=== PATIENT | female | born 1970 | race Caucasian/White ===

== ENCOUNTER 2018-11-08 10:47 | Emergency (ER) | payer BC, OTHER ==
--- NOTE | 2018-11-08 11:06 | EDM.PDOC ---
ED HPI GENERAL MEDICAL PROBLEM - General Chief Complaint: Upper Extremity Injury/Pain Stated Complaint: hand injury Time Seen by Provider: 11/08/18 10:55 Source of Information: Reports: Patient History Limitations: Reports: No Limitations - History of Present Illness INITIAL COMMENTS - FREE TEXT/NARRATIVE: Patient is a 48-year-old who works at [employer] seen with chief complaint right hand trauma patient while working smashed her right hand between a pole and a Bentyl which is a cart the caries part. Onset: Today, Sudden Duration: Minutes:, Constant (Ice makes it better) Location: Reports: Upper Extremity, Right Quality: Reports: Throbbing Severity: Mild Improves with: Reports: Cold Therapy Worsens with: Reports: Movement Context: Reports: Trauma Associated Symptoms: Reports: No Other Symptoms Right Hand Pain Score (Numeric/FACES): 9 - Related Data Allergies Allergy/AdvReac Type Severity Reaction Status Date / Time No Known Allergies Allergy Verified 11/08/18 10:50 Home Meds: Home Meds Celecoxib [CeleBREX] 400 mg PO DAILY 11/08/18 [History] predniSONE [Prednisone] 5 mg PO DAILY 11/08/18 [History] Review of Systems - Review of Systems Review Of Systems: See Below Constitutional: Reports: No Symptoms Eyes: Reports: No Symptoms Ears: Reports: No Symptoms Nose: Reports: No Symptoms Mouth/Throat: Reports: No Symptoms Respiratory: Reports: No Symptoms Cardiovascular: Reports: No Symptoms GI/Abdominal: Reports: No Symptoms Genitourinary: Reports: No Symptoms Musculoskeletal: Reports: Hand Pain Skin: Reports: Bruising Neurological: Reports: No Symptoms Psychiatric: Reports: No Symptoms ED EXAM, GENERAL - Physical Exam Exam: See Below Exam Limited By: No Limitations General Appearance: Alert, WD/WN, No Apparent Distress Eye Exam: Bilateral Eye: PERRL Ears: Normal External Exam, Normal Canal, Hearing Grossly Normal, Normal TMs Ear Exam: Bilateral Ear: Auricle Normal, Canal Normal, TM normal Nose: Normal Inspection, Normal Mucosa, No Blood Throat/Mouth: Normal Inspection, Normal Lips, Normal Teeth, Normal Gums, Normal Oropharynx, Normal Voice, No Airway Compromise Head: Atraumatic, Normocephalic Neck: Normal Inspection, Supple, Non-Tender, Full Range of Motion Respiratory/Chest: No Respiratory Distress, Lungs Clear, Normal Breath Sounds, No Accessory Muscle Use, Chest Non-Tender Cardiovascular: Normal Peripheral Pulses, Regular Rate, Rhythm, No Edema, No Gallop, No JVD, No Murmur, No Rub GI/Abdominal: Normal Bowel Sounds, Soft, Non-Tender, No Organomegaly, No Distention, No Abnormal Bruit, No Mass (Female) Exam: Deferred Rectal (Female) Exam: Deferred Back Exam: Normal Inspection, Full Range of Motion, NT Extremities: Normal Inspection, Normal Range of Motion, Non-Tender, Normal Capillary Refill, No Pedal Edema Neurological: Alert, Oriented, CN II-XII Intact, Normal Cognition, Normal Gait, Normal Reflexes, No Motor/Sensory Deficits Psychiatric: Normal Affect, Normal Mood Skin Exam: Warm, Dry, Intact, Normal Color, No Rash Lymphatic: No Adenopathy Course - Vital Signs Last Recorded V/S: Last Vital Signs Temp 98.2 F 11/08/18 10:48 Pulse 69 11/08/18 10:48 Resp 16 11/08/18 10:48 BP 153/69 H 11/08/18 10:48 Pulse Ox 100 11/08/18 10:48 - Orders/Labs/Meds Orders: Active Orders 24 hr Category Date Time Status Vaccines to be Administered [RC] PER UNIT ROUTINE Care 11/08/18 11:31 Ordered Hand Comp Min 3V Rt [CR] Stat Exams 11/08/18 10:57 Ordered Meds: Medications Discontinued Medications Generic Name Dose Route Start Last Admin Trade Name Freq PRN Reason Stop Dose Admin Diphtheria/Tetanus/Acell Pertussis 0.5 ml 11/08/18 11:30 11/08/18 11:36 Adacel IM 11/08/18 11:31 0.5 ml .ONCE ONE Administration Neomycin/Polymyxin/Bacitracin 1 each 11/08/18 11:10 11/08/18 11:32 Triple Antibiotic Oint TOP 11/08/18 11:11 1 each ONETIME ONE Administration Departure - Departure Time of Disposition: 11:49 Disposition: Home, Self-Care 01 Condition: Fair Clinical Impression: Abrasion hand - Discharge Information *PRESCRIPTION DRUG MONITORING PROGRAM REVIEWED*: No *COPY OF PRESCRIPTION DRUG MONITORING REPORT IN PATIENT MIKE: No Referrals: Latrice Fontenot NP [Primary Care Provider] - Forms: ED Department Discharge Care Plan Goals: Patient instructed to ice her hand 20 minutes on and 20 minutes off patient will be kept from work until Monday the November 13 she has an appointment with her primary provider on Monday the patient is to take Motrin 400 mg every 6 hours for pain. - My Orders Last 24 Hours: My Active Orders 11/08/18 10:57 Hand Comp Min 3V Rt [CR] Stat 11/08/18 11:31 Vaccines to be Administered [RC] PER UNIT ROUTINE - Assessment/Plan Last 24 Hours: My Active Orders 11/08/18 10:57 Hand Comp Min 3V Rt [CR] Stat 11/08/18 11:31 Vaccines to be Administered [RC] PER UNIT ROUTINE
[2018-11-08] MEDS ORDERED: Bacitracin/Neomycin/Polymyxin B Oint 0.9 GM U/D Packet TOP ONE (11:10)
[2018-11-08] MEDS ORDERED: Diphtheria,Pertussis(Acell),Tetanus Vaccine 0.5 ML SDV IM ONE (11:30)
== END 2018-11-08 12:33 | disposition home or self-care (01) ==
LOC: LL.ED 10:47
DX: S60.511A Abrasion of right hand, initial encounter (principal); Z23 Encounter for immunization; Z79.899 Other long term (current) drug therapy; W23.1XXA Caught, crushed, jammed, or pinched between stationary objects, initial encounter; Y99.0 Civilian activity done for income or pay
CPT/HCPCS: 73130-RT; 90471; 90715; 99283-25